=== PATIENT | male | born 1950 | race Caucasian/White ===

== ENCOUNTER 2018-03-01 07:13 | Day surgery (SDC) | payer MEDICARE, BC ==
[2018-03-01] MEDS: DUOVISC (0.50ML VISCOAT/0.55ML PROVISC) OPHTH KIT As Ordered (06:48)
[2018-03-01] MEDS: OFLOXACIN 0.3 % (OCUFLOX) OPTH SOL 5ML OS (07:53)
[2018-03-01] MEDS: PROPARACAINE 0.5% OPHTH SOL 15ML OS (07:53)
[2018-03-01] MEDS: PHENYLEPHRINE 2.5% OPHTH SOL 2ML OS (07:53)
[2018-03-01] MEDS: TROPICAMIDE 1% OPHTH SOLN 2ML OS (07:53)
[2018-03-01] MEDS ORDERED: MIDAZOLAM INJ 2 MG/2 ML VIAL (J2250) As Ordered (08:47)
[2018-03-01] MEDS ORDERED: fentaNYL 100 MCG/2 ML INJECTION (J3010) As Ordered (08:47)
[2018-03-01] MEDS: POVIDONE-IODINE 5% OPHTH PREP SOL 30ML As Ordered (08:56)
[2018-03-01] MEDS: BALANCED SALT IRRIGATION SOLUTION 500ML BAG (FOR OR EYE MACHINE) As Ordered (08:57)
[2018-03-01] MEDS: LIDOCAINE 1% SDV 5 ML VIAL As Ordered (08:57)
[2018-03-01] MEDS: CEFUROXIME 1MG/0.1ML INTRACAMERAL INJ As Ordered (08:57)
[2018-03-01] MEDS ORDERED: ACETAMINOPHEN TAB 650MG DOSE (2X325MG) PO (09:30)
[2018-03-01] MEDS ORDERED: ONDANSETRON 4MG/2ML VIAL (J2405) IV (09:30)
== END 2018-03-01 09:50 | disposition home or self-care (01) ==
LOC: M SDC 07:13
DX: H25.12 Age-related nuclear cataract, left eye (principal); I10 Essential (primary) hypertension; I25.10 Atherosclerotic heart disease of native coronary artery without angina pectoris; E78.5 Hyperlipidemia, unspecified; M12.9 Arthropathy, unspecified; K50.819 Crohn's disease of both small and large intestine with unspecified complications; M54.2 Cervicalgia; Z79.899 Other long term (current) drug therapy; Z79.82 Long term (current) use of aspirin; Z96.643 Presence of artificial hip joint, bilateral; Z96.1 Presence of intraocular lens; Z86.19 Personal history of other infectious and parasitic diseases; Z95.5 Presence of coronary angioplasty implant and graft
CPT/HCPCS: 66984

== ENCOUNTER 2019-01-28 12:44 | Outpatient (CLI) | payer MEDICARE, BC ==
[~2019-01-28] VITALS: Ht 175.3 cm; Wt 82.3 kg
[~2019-01-28 12:44] MED LIST: ASPI81TA85 PO; ATOR40TA75 PO; CIMZ200K SC; CLOP75TA2 PO; CYAN1000VL SC; GABA-843 PO; HYDR-3713 PO; MESA24CASA PO; METO1TAB32 PO; OMEP20CA3 PO; SERT-155 PO
[2019-01-28 13:03] VITALS: BP 142/63
[2019-01-28] MEDS ORDERED: NORC1TAB7 PO (13:28)
[2019-01-28] MEDS ORDERED: PLAV1TAB2 PO (13:30)
[2019-01-28] MEDS ORDERED: CYAN1000VL IM (13:30)
[2019-01-28] MEDS ORDERED: ACETAMINOPHEN TAB 650MG DOSE (2X325MG) PO ONE (14:30)
[2019-01-28] MEDS ORDERED: diphenhydrAMINE 25 MG CAP PO ONE (14:30)
[2019-01-28 14:45] VITALS: BP 117/66
[2019-01-28] MEDS ORDERED: VEDOLIZUMAB 300 MG in NS 250 ML IV ONE (15:00)
[2019-01-28 15:20] VITALS: BP 114/68
[2019-01-28 15:45] VITALS: BP 119/64
--- NOTE | 2019-01-28 17:44 | CR.PDOC ---
General Date of Consultation: Jan 28, 2019 Consultation REASON FOR CONSULTATION/CHIEF COMPLAINT: [Infusion protocol]. 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 Patient denies of any fever, recent illness, and denies of any pain.]. ALLERGIES: Please see below. HOME MEDICATIONS: Please see below. PAST MEDICAL HISTORY: See above PAST SURGICAL HISTORY: Gallbladder removal, cardiac cath, ileocolectomy, cataract surgery, right colon stricture removal, angioplasty, hip replacement FAMILY HISTORY: Mother with history of Alzheimer's, congestive heart failure, dementia, diabetes, hyperlipidemia, hypertension, father at age of 53 SOCIAL HISTORY: Denies of smoking, drinking, drug abuse REVIEW OF SYSTEMS: Template review systems negative other than those described in HPI PHYSICAL EXAMINATION: VITAL SIGNS: Please see below GENERAL APPEARANCE: Resting comfortably HEENT: Normocephalic, PERRLA, Mucous moist, CARDIOVASCULAR: S1,S2, pulse present, regularly, regular LUNGS: Equal air entry b/l, no wheezes or crackle ABDOMEN: Soft, BS present, no tenderness, no guarding EXTREMITIES: B/L no edema, capillary refill present SKIN: Warm, No fever NEUROLOGICAL: Cranial nerves grossly intact PSYCHIATRIC: Normal mood and affect for current situation LABORATORY DATA: Please see below. 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 As per referring provider protocol and providing service for infusion Center please follow the following orders. Risk and benefit have been discussed by ordering/ outpatient provider. I have reiterated the risk and benefit of current protocol/ medication(s). Vital Signs/I&O Vital Signs Date Time Temp Pulse Resp B/P (MAP) Pulse Ox O2 Delivery O2 Flow Rate FiO2 01/28/19 15:45 98.0 56 18 119/64 (82) 99 Allergies Coded Allergies: No Known Allergies (Unverified , 02/20/18) Home Medications Scheduled Atorvastatin Calcium (Atorvastatin Calcium) 40 Mg Tab, 40 MG PO DAILY, (Reported) Clopidogrel Bisulfate (Plavix) 75 Mg Tablet, 1 TAB PO DAILY for 30 Days, #30 (Reported) Cyanocobalamin (Cyanocobalamin Injection) 1,000 Mcg/1 Ml Vial, 1 ML IM Q30D for 30 Days, #1 (Reported) Gabapentin (Gabapentin) 300 Mg Cap, 300 MG PO QID, (Reported) Mesalamine (Pentasa) 250 Mg Capcr, 4 CAP PO QID, (Reported) Metoprolol Succinate (Metoprolol Succinate) 25 Mg Tab, 25 MG PO DAILY, (Reported) Omeprazole (Omeprazole) 20 Mg Cap, 20 MG PO BID, (Reported) Sertraline HCl (Sertraline HCl) 50 Mg Tab, 50 MG PO DAILY, (Reported) Scheduled PRN Hydrocodone/Acetaminophen (Hydrocodone-Acetamin 5-325 mg) 1 Tab Tab, 1 TAB PO Q6H PRN for PAIN, (Reported) Hydrocodone/Acetaminophen ([place] 5-325 Tablet) 1 Each Tablet, 1-2 TAB PO Q4-6HP PRN for pain for 5 Days, #60 (Reported) RADHA FUENTES MD Jan 28, 2019 17:44
== END 2019-01-28 15:45 | disposition home or self-care (01) ==
LOC: M INFU 12:44
PROVIDERS: ATTEND Internal Medicine
DX: K50.00 Crohn's disease of small intestine without complications (principal)
CPT/HCPCS: 96365; J3380

== ENCOUNTER 2019-02-11 12:48 | Outpatient (CLI) | payer MEDICARE, BC ==
[~2019-02-11 12:48] MED LIST changes: +CYAN1000VL IM; +NORC1TAB7 PO; +PLAV1TAB2 PO
[2019-02-11 13:00] VITALS: BP 132/67
[2019-02-11] MEDS ORDERED: ACETAMINOPHEN TAB 650MG DOSE (2X325MG) PO ONE (14:00)
[2019-02-11] MEDS ORDERED: VEDOLIZUMAB 300 MG in NS 250 ML IV ONE (14:00)
[2019-02-11] MEDS ORDERED: diphenhydrAMINE 25 MG CAP PO ONE (14:00)
[2019-02-11 14:10] VITALS: BP 120/60
== END 2019-02-11 14:10 | disposition home or self-care (01) ==
LOC: M INFU 12:48
PROVIDERS: ATTEND Internal Medicine
DX: K50.00 Crohn's disease of small intestine without complications (principal)
CPT/HCPCS: 96365; J3380

== ENCOUNTER 2019-05-06 12:48 | Outpatient (CLI) | payer MEDICARE, BC ==
[~2019-05-06] VITALS: Ht 175.3 cm; Wt 81.6 kg
[~2019-05-06 12:48] MED LIST changes: -OMEP20CA3 PO; +OMEP20CA4 PO
[2019-05-06 12:55] VITALS: BP 118/62
[2019-05-06] MEDS ORDERED: VEDOLIZUMAB 300 MG in NS 250 ML IV ONE (13:15)
[2019-05-06] MEDS ORDERED: diphenhydrAMINE 25 MG CAP PO ONE (13:15)
[2019-05-06] MEDS ORDERED: ACETAMINOPHEN TAB 650MG DOSE (2X325MG) PO ONE (13:15)
[2019-05-06 14:10] VITALS: BP 123/68
== END 2019-05-06 14:20 | disposition home or self-care (01) ==
LOC: M INFU 12:48
PROVIDERS: ATTEND Internal Medicine Gastroenterology
DX: K50.00 Crohn's disease of small intestine without complications (principal)
CPT/HCPCS: 96365; J3380

== ENCOUNTER 2019-07-08 12:48 | Outpatient (CLI) | payer MEDICARE, BC ==
[~2019-07-08] VITALS: Ht 175.3 cm; Wt 81.6 kg
[2019-07-08 13:04] VITALS: BP 134/67
[2019-07-08] MEDS ORDERED: diphenhydrAMINE 25 MG CAP PO ONE (14:00)
[2019-07-08] MEDS ORDERED: ACETAMINOPHEN TAB 650MG DOSE (2X325MG) PO ONE (14:00)
[2019-07-08] MEDS ORDERED: VEDOLIZUMAB 300 MG in NS 250 ML IV ONE (14:00)
[2019-07-08 14:05] VITALS: BP 159/75
== END 2019-07-08 14:15 | disposition home or self-care (01) ==
LOC: M INFU 12:48
PROVIDERS: ATTEND Internal Medicine Gastroenterology
DX: K50.00 Crohn's disease of small intestine without complications (principal)
CPT/HCPCS: 96365; J3380

== ENCOUNTER 2019-09-02 13:06 | Outpatient (CLI) | payer MEDICARE, BC ==
[~2019-09-02] VITALS: Ht 175.3 cm; Wt 81.6 kg
[~2019-09-02 13:06] MED LIST changes: +OMEP-172 PO; -OMEP20CA4 PO; -SERT-155 PO; +SERT50TA29 PO
[2019-09-02] MEDS ORDERED: VEDOLIZUMAB 300 MG in NS 250 ML IV ONE (13:15)
[2019-09-02] MEDS ORDERED: ACETAMINOPHEN TAB 650MG DOSE (2X325MG) PO ONE (13:15)
[2019-09-02] MEDS ORDERED: diphenhydrAMINE 25 MG CAP PO ONE (13:15)
[2019-09-02 13:32] VITALS: BP 139/61
[2019-09-02 14:30] VITALS: BP 117/66
== END 2019-09-02 14:30 | disposition home or self-care (01) ==
LOC: M INFU 13:06
PROVIDERS: ATTEND Internal Medicine Gastroenterology
DX: K50.90 Crohn's disease, unspecified, without complications (principal)
CPT/HCPCS: 96365; J3380

== ENCOUNTER 2019-10-28 13:37 | Outpatient (CLI) | payer MEDICARE, BC ==
[~2019-10-28] VITALS: Ht 175.3 cm; Wt 81.1 kg
[~2019-10-28 13:37] MED LIST changes: -OMEP-172 PO; +OMEP1CAP73 PO
[2019-10-28 13:40] VITALS: BP 126/64
[2019-10-28] MEDS ORDERED: ENTY1INJ IV (14:06)
[2019-10-28] MEDS ORDERED: VEDOLIZUMAB 300 MG in NS 250 ML IV ONE (14:30)
[2019-10-28 15:02] VITALS: BP 123/76
== END 2019-10-28 15:05 | disposition home or self-care (01) ==
LOC: M INFU 13:37
PROVIDERS: ATTEND Internal Medicine Gastroenterology
DX: K50.00 Crohn's disease of small intestine without complications (principal)
CPT/HCPCS: 96365; J3380

== ENCOUNTER 2019-12-23 13:17 | Outpatient (CLI) | payer MEDICARE, BC ==
[~2019-12-23] VITALS: Ht 175.3 cm; Wt 81.6 kg
[~2019-12-23 13:17] MED LIST changes: +ENTY1INJ IV
[2019-12-23 13:41] VITALS: BP 137/65
[2019-12-23] MEDS ORDERED: VEDOLIZUMAB 300 MG in NS 250 ML IV ONE (14:00)
[2019-12-23 14:35] VITALS: BP 132/72
== END 2019-12-23 14:35 | disposition home or self-care (01) ==
LOC: M INFU 13:17
PROVIDERS: ATTEND Internal Medicine Gastroenterology
DX: K50.00 Crohn's disease of small intestine without complications (principal)
CPT/HCPCS: 96365; J3380

== ENCOUNTER 2020-02-17 13:29 | Outpatient (CLI) | payer MEDICARE, BC ==
[~2020-02-17] VITALS: Ht 175.3 cm; Wt 81.6 kg
[~2020-02-17 13:29] MED LIST changes: -ASPI81TA85 PO; +ASPI81TA86 PO; +GABA-282 PO; -GABA-843 PO
[2020-02-17 13:35] VITALS: BP 125/67
[2020-02-17] MEDS ORDERED: VEDOLIZUMAB 300 MG in NS 250 ML IV ONE (14:00)
[2020-02-17 14:45] VITALS: BP 114/69
== END 2020-02-17 14:45 | disposition home or self-care (01) ==
LOC: M INFU 13:29
PROVIDERS: ATTEND Internal Medicine Gastroenterology
DX: K50.00 Crohn's disease of small intestine without complications (principal)
CPT/HCPCS: 96365; J3380

== ENCOUNTER 2020-04-13 13:13 | Outpatient (CLI) | payer MEDICARE, BC ==
[~2020-04-13] VITALS: Ht 175.3 cm; Wt 81.8 kg
[~2020-04-13 13:13] MED LIST changes: -GABA-282 PO; +GABA-843 PO
[2020-04-13] MEDS ORDERED: VEDOLIZUMAB 300 MG in NS 250 ML IV ONE (14:00)
[2020-04-13 14:03] VITALS: BP 124/71
[2020-04-13 14:53] VITALS: BP 111/58
== END 2020-04-13 15:00 | disposition home or self-care (01) ==
LOC: M INFU 13:13
PROVIDERS: ATTEND Internal Medicine Gastroenterology
DX: K50.00 Crohn's disease of small intestine without complications (principal)
CPT/HCPCS: 96365; J3380

== ENCOUNTER 2020-06-09 13:19 | Outpatient (CLI) | payer MEDICARE, BC ==
[~2020-06-09] VITALS: Ht 175.3 cm; Wt 84.3 kg
[2020-06-09] MEDS ORDERED: VEDOLIZUMAB 300 MG in NS 250 ML IV ONE (13:30)
[2020-06-09 13:56] VITALS: BP 109/66
[2020-06-09 15:10] VITALS: BP 110/61
== END 2020-06-09 15:10 | disposition home or self-care (01) ==
LOC: M INFU 13:19
PROVIDERS: ATTEND Internal Medicine Gastroenterology
DX: K50.00 Crohn's disease of small intestine without complications (principal)
CPT/HCPCS: 96365; J3380

== ENCOUNTER 2020-08-04 13:15 | Outpatient (CLI) | payer MEDICARE, BC ==
[~2020-08-04] VITALS: Ht 175.3 cm; Wt 83.9 kg
[2020-08-04 13:25] VITALS: BP 137/68
[2020-08-04] MEDS ORDERED: VEDOLIZUMAB 300 MG in NS 250 ML IV ONE (13:30)
[2020-08-04 14:16] VITALS: BP 137/68
[2020-08-04 14:45] VITALS: BP 129/66
== END 2020-08-04 14:45 | disposition home or self-care (01) ==
LOC: M INFU 13:15
PROVIDERS: ATTEND Internal Medicine Gastroenterology
DX: K50.00 Crohn's disease of small intestine without complications (principal)
CPT/HCPCS: 96365; J3380

== ENCOUNTER 2020-09-29 13:14 | Outpatient (CLI) | payer MEDICARE, BC ==
[~2020-09-29] VITALS: Ht 175.3 cm; Wt 83.9 kg
[2020-09-29] MEDS ORDERED: VEDOLIZUMAB 300 MG in NS 250 ML IV ONE (13:30)
[2020-09-29 13:40] VITALS: BP 117/59
[2020-09-29 14:41] VITALS: BP 108/58
== END 2020-09-29 14:41 | disposition home or self-care (01) ==
LOC: M INFU 13:14
PROVIDERS: ATTEND Internal Medicine Gastroenterology
DX: K50.00 Crohn's disease of small intestine without complications (principal)
CPT/HCPCS: 96365; J3380

== ENCOUNTER 2020-11-24 13:12 | Outpatient (CLI) | payer MEDICARE, BC ==
[~2020-11-24] VITALS: Ht 175.3 cm; Wt 83.9 kg
[~2020-11-24 13:12] MED LIST changes: +ALBUTEROL SULFATE 2.5 MG/0.5 ML INH NEB SOLN INH PRN; +EPINEPHrine INJ 1 MG/ML 1ML AMP IM PRN; +GABA-282 PO; -GABA-843 PO; +diphenhydrAMINE 50MG/ML VIAL (J1200) IV PRN; +methylPREDNISolone 125MG 2ML VIAL IV PRN
[2020-11-24 13:27] VITALS: BP 127/65
[2020-11-24] MEDS ORDERED: VEDOLIZUMAB 300 MG in NS 250 ML IV ONE ×4 (13:30)
[2020-11-24] MEDS ORDERED: NS 1,000 ML IV SCH (13:30)
[2020-11-24 13:38] VITALS: BP 127/65
[2020-11-24 14:28] VITALS: BP 132/72
== END 2020-11-24 14:30 | disposition home or self-care (01) ==
LOC: M INFU 13:12
PROVIDERS: ATTEND Internal Medicine Gastroenterology
DX: K50.90 Crohn's disease, unspecified, without complications (principal)
CPT/HCPCS: 96365; J3380

== ENCOUNTER 2021-01-05 13:31 | Outpatient (CLI) | payer MEDICARE, BC ==
[~2021-01-05] VITALS: Ht 175.3 cm; Wt 83.9 kg
[~2021-01-05 13:31] MED LIST changes: +NS 1,000 ML IV SCH; +VEDOLIZUMAB 300 MG in NS 250 ML IV ONE
[2021-01-05 14:15] VITALS: BP 110/63
[2021-01-05 15:00] VITALS: BP 131/65
== END 2021-01-05 15:00 | disposition home or self-care (01) ==
LOC: M INFU 13:31
PROVIDERS: ATTEND Internal Medicine Gastroenterology
DX: K50.90 Crohn's disease, unspecified, without complications (principal)
CPT/HCPCS: 96365; J3380

== ENCOUNTER 2021-02-16 13:10 | Outpatient (CLI) | payer MEDICARE, BC ==
[~2021-02-16] VITALS: Ht 175.3 cm; Wt 83.9 kg
[~2021-02-16 13:10] MED LIST changes: -ALBUTEROL SULFATE 2.5 MG/0.5 ML INH NEB SOLN INH PRN; -EPINEPHrine INJ 1 MG/ML 1ML AMP IM PRN; -NS 1,000 ML IV SCH; -VEDOLIZUMAB 300 MG in NS 250 ML IV ONE; -diphenhydrAMINE 50MG/ML VIAL (J1200) IV PRN; -methylPREDNISolone 125MG 2ML VIAL IV PRN
[2021-02-16 13:30] VITALS: BP 134/67
[2021-02-16] MEDS ORDERED: NS 1,000 ML IV SCH (13:30)
[2021-02-16] MEDS ORDERED: methylPREDNISolone 125MG 2ML VIAL IV PRN (13:30)
[2021-02-16] MEDS ORDERED: EPINEPHrine INJ 1 MG/ML 1ML AMP IM PRN (13:30)
[2021-02-16] MEDS ORDERED: ALBUTEROL SULFATE 2.5 MG/0.5 ML INH NEB SOLN INH PRN (13:30)
[2021-02-16] MEDS ORDERED: diphenhydrAMINE 50MG/ML VIAL (J1200) IV PRN (13:30)
[2021-02-16] MEDS ORDERED: VEDOLIZUMAB 300 MG in NS 250 ML IV ONE (13:30)
[2021-02-16 13:39] VITALS: BP 134/67
[2021-02-16 14:34] VITALS: BP 132/59
== END 2021-02-16 14:35 | disposition home or self-care (01) ==
LOC: M INFU 13:10
PROVIDERS: ATTEND Internal Medicine Gastroenterology
DX: K50.90 Crohn's disease, unspecified, without complications (principal)
CPT/HCPCS: 96365; J3380

== ENCOUNTER 2021-03-31 13:30 | Outpatient (CLI) | payer MEDICARE, BC ==
[~2021-03-31] VITALS: Ht 175.3 cm; Wt 83.0 kg
[~2021-03-31 13:30] MED LIST changes: +ALBUTEROL SULFATE 2.5 MG/0.5 ML INH NEB SOLN INH PRN; +EPINEPHrine INJ 1 MG/ML 1ML AMP IM PRN; +NS 1,000 ML IV SCH; +VEDOLIZUMAB 300 MG in NS 250 ML IV ONE; +diphenhydrAMINE 50MG/ML VIAL (J1200) IV PRN; +methylPREDNISolone 125MG 2ML VIAL IV PRN
[2021-03-31 13:40] VITALS: BP 141/70
[2021-03-31 14:45] VITALS: BP 128/65
== END 2021-03-31 14:50 | disposition home or self-care (01) ==
LOC: M INFU 13:30
PROVIDERS: ATTEND Internal Medicine Gastroenterology
DX: K50.90 Crohn's disease, unspecified, without complications (principal)
CPT/HCPCS: 96365; J3380

== ENCOUNTER → 2021-09-21 | Outpatient (CLI) | payer MEDICARE, BC ==
[~2021-09-21] VITALS: Ht 175.3 cm; Wt 80.0 kg
[~2021-09-21] MED LIST changes: -ALBUTEROL SULFATE 2.5 MG/0.5 ML INH NEB SOLN INH PRN; -EPINEPHrine INJ 1 MG/ML 1ML AMP IM PRN; -NS 1,000 ML IV SCH; +USTEKINUMAB 390 MG in NS 172 ML IV ONE; -VEDOLIZUMAB 300 MG in NS 250 ML IV ONE; -diphenhydrAMINE 50MG/ML VIAL (J1200) IV PRN; -methylPREDNISolone 125MG 2ML VIAL IV PRN
[2021-09-21 09:23] VITALS: BP 155/75
[2021-09-21 11:45] VITALS: BP 142/71
[2021-09-21 12:56] VITALS: BP 134/72
== END ==
LOC: M INFU 09:02
PROVIDERS: ATTEND Student in an Organized Health Care Education/Training Program
DX: K50.90 Crohn's disease, unspecified, without complications (principal)
CPT/HCPCS: 96365; 96366; J3358

== ENCOUNTER → 2024-08-12 | Outpatient (CLI) | payer MEDICARE ==
[~2024-08-12] MED LIST changes: +CLOP75TA99 PO; +GABA-1172 PO; -GABA-282 PO; -PLAV1TAB2 PO; +PROHANCE 279.3MG/ML 15ML VIAL ONE; +PROHANCE 279.3MG/ML 5ML VIAL ONE; -USTEKINUMAB 390 MG in NS 172 ML IV ONE
== END ==
LOC: M PLAIMG 10:44
PROVIDERS: ATTEND Otolaryngology
DX: H90.3 Sensorineural hearing loss, bilateral (principal)
CPT/HCPCS: 70553; A9576

== ENCOUNTER → 2024-12-06 | Outpatient (REF) | payer MEDICARE ==
[~2024-12-06] MED LIST changes: -PROHANCE 279.3MG/ML 15ML VIAL ONE; -PROHANCE 279.3MG/ML 5ML VIAL ONE
== END ==
LOC: M SFHCDERM 17:50
PROVIDERS: ATTEND Nurse Practitioner Family
DX: R21 Rash and other nonspecific skin eruption (principal)